=== PATIENT | female | born 1960 | race Caucasian/White ===

== ENCOUNTER 2020-10-04 11:38 | Inpatient (IN) | payer MEDICARE, MEDICAID ==
[~2020-10-04 11:38] MED LIST: Heparin 10,000 UNITS/ 10 ML VIAL ONE
[2020-10-04 12:44] LABS: ALT (SGPT) 10 U/L (8-55); AST (SGOT) 12 U/L (5-34); Albumin 3.4 g/dL (3.4-4.8); Alkaline Phosphatase 94 U/L (40-110); Anion Gap 12 mmol/L (10-20); BUN (Urea Nitrogen) 73 mg/dL (9.8-20.1); Bilirubin, Total 0.8 mg/dL (0.2-1.2); Calc. Creatinine Clearance 0 mL/min (70-130); Calcium 9.5 mg/dL (7.8-10.44); Carbon Dioxide 33 mmol/L (23-31); Chloride 97 mmol/L (98-107); Globulin 4.6 g/dL (2.4-3.5); Glucose 204 mg/dL (80-115); Potassium 4.2 mmol/L (3.5-5.1); Sodium 138 mmol/L (136-145)
[2020-10-04 12:52] LABS: Band 2 % (5-11); Eosinophils 4 % (0-10); Lymphocytes 17 % (21-51); MDiff Complete? YES; Mean Corpuscular HGB CONC 31.9 g/dL (32.0-36.0); Mean Corpuscular Hemoglobin 29.8 pg (27.0-31.0); Mean Corpuscular Volume 93.7 fL (78.0-98.0); Mean Platelet Volume 9.3 fL (7.4-10.4); Monocytes 8 % (0-10); Neutrophil 68 % (42-75); Platelet Count 115 thou/uL (130-400); Platelet Morphology Comment Appears Decreased; Polychromasia SLIGHT = 2-3 cells (100X) (0-2/hpf); RBC Distribution Width 15.1 % (11.5-14.5); Red Blood Cell (RBC) Count 4.04 mill/uL (4.20-5.40)
[2020-10-04] MEDS ORDERED: Acetaminophen/Codeine 30-300mg Tablet ONE (13:02)
[2020-10-04] MEDS ORDERED: Dextrose 5% in Water 1,000 ML IV PRN (14:12)
[2020-10-04] MEDS ORDERED: Bisacodyl 5 MG TAB PO PRN (14:12)
[2020-10-04] MEDS ORDERED: Acetaminophen 325 MG TAB PO PRN (14:12)
[2020-10-04] MEDS ORDERED: Ondansetron PF 4 MG/2 ML Vial IVP PRN (14:12)
[2020-10-04] MEDS ORDERED: Dextrose 50% Abboject 50 ML SYRINGE SLOW IVP PRN (14:12)
[2020-10-04 14:25] LABS: CKMB 1.9 ng/mL (0-6.6)
[2020-10-04] MEDS ORDERED: Heparin 5,000 UNITS/ML VIAL SC SCH (15:00)
[2020-10-04] MEDS ORDERED: CEFAZOLIN 2 GM in Premix Bag 1 BAG IVPB SCH ×2 (15:30→16:00)
[2020-10-04 16:10] LABS: HBSAB Concentration Less than 8.00 mIU/mL; Hep B Core Total Ab Non-Reactive (NonReactive); Hep B Core Total Index 0.12 S/CO (0-0.79); Hep B Surf AB Non-Reactive (NonReactive); Hep B Surf Ag Non-Reactive S/CO (NonReactive); Hep C IgG Ab Non-Reactive (NonReactive); Hep C Index 0.07 S/CO (0-0.79)
[2020-10-04 16:50] LABS: SARS-CoV-2 NAA Rapid Test Not Detected (NotDetected)
[2020-10-04] MEDS ORDERED: Lidocaine 1% w/Epinephrine 1:100K 20 ML VIAL ONE (17:16)
[2020-10-04] MEDS ORDERED: Sodium Chloride 0.9% 30 ML ONE (17:16)
[2020-10-04] MEDS ORDERED: Bupivacaine PF 0.5% 30 ML VIAL ONE (17:16)
[2020-10-04] MEDS ORDERED: Heparin 10,000 UNITS/ 10 ML VIAL ONE (17:16)
[2020-10-04] MEDS ORDERED: Propofol 500 MG/50 ML VIAL ONE (17:27)
[2020-10-04] MEDS ORDERED: Fentanyl 100 MCG/2 ML VIAL ONE (17:27)
[2020-10-04] MEDS ORDERED: Midazolam HCl 2 mg/2 ml Vial ONE (17:27)
[2020-10-04] MEDS ORDERED: Tuberculin PPD 0.1 ML VIAL I-DERMAL SCH ×2 (17:30→20:00)
[2020-10-04] MEDS ORDERED: PROPOFOL 0 ML ONE (17:50)
[2020-10-04] MEDS ORDERED: Sodium Chloride 0.9% 10 ML ONE (18:27)
[2020-10-05] MEDS: HYDROcodone/Acetaminophen 5/325 mg Tablet PO PRN ×3 (04:03→18:54)
[2020-10-05 04:32] LABS: #Eosinphils 0.3 thou/uL (0.0-0.7); #Lymphocytes 0.6 thou/uL (1.20-3.40); #Monocytes 0.6 thou/uL (0.11-0.59); %Basophils 0.5 % (0.0-1.0); %Eosinophils 5.3 % (0.0-10.0); %Lymphocytes 8.8 % (21.0-51.0); %Monocytes 9.1 % (0.0-10.0); %Neutrophils 76.2 % (42.0-75.0); Hemoglobin 10.6 g/dL (12.0-16.0); Mean Corpuscular HGB CONC 31.9 g/dL (32.0-36.0); Mean Corpuscular Hemoglobin 30.1 pg (27.0-31.0); Mean Corpuscular Volume 94.4 fL (78.0-98.0); Mean Platelet Volume 8.6 fL (7.4-10.4); Platelet Count 132 thou/uL (130-400); Red Blood Cell (RBC) Count 3.53 mill/uL (4.20-5.40); White Blood Cell (WBC) Count 6.5 thou/uL (4.8-10.8)
[2020-10-05 04:51] LABS: Anion Gap 10 mmol/L (10-20); BUN (Urea Nitrogen) 55 mg/dL (9.8-20.1); Calc. Creatinine Clearance 69 mL/min (70-130); Calcium 9.2 mg/dL (7.8-10.44); Carbon Dioxide 34 mmol/L (23-31); Chloride 100 mmol/L (98-107); Glucose 137 mg/dL (80-115); Potassium 4.1 mmol/L (3.5-5.1); Sodium 140 mmol/L (136-145)
[2020-10-05] MEDS ORDERED: Morphine 2 MG/ML VIAL SLOW IVP SCH ×2 (07:00→23:59)
[2020-10-05] MEDS ORDERED: Heparin 10,000 UNITS/ 10 ML VIAL ONE (09:42)
[2020-10-05] MEDS ORDERED: Gabapentin 300 MG CAP PO SCH (15:30)
[2020-10-05] MEDS: Gabapentin 300 MG CAP PO SCH (20:41)
[2020-10-05 23:26] LABS: Body Surface Area 2.54
[2020-10-05] MEDS ORDERED: traMADol HCl 50 MG TAB PO PRN (23:40)
[2020-10-06 00:03] LABS: Creatinine, Urine 53.9 mg/dL (47-110)
[2020-10-06] MEDS: HYDROcodone/Acetaminophen 7.5/325 mg Tablet PO PRN ×2 (00:57→17:53)
[2020-10-06] MEDS ORDERED: Heparin 10,000 UNITS/ 10 ML VIAL ONE ×2 (09:29→12:42)
[2020-10-06] MEDS: Gabapentin 300 MG CAP PO SCH ×3 (10:07→20:59)
[2020-10-06 10:21] LABS: #Eosinphils 0.2 thou/uL (0.0-0.7); #Lymphocytes 0.6 thou/uL (1.20-3.40); #Monocytes 0.7 thou/uL (0.11-0.59); #Neutrophils 5.8 thou/uL (1.40-6.50); %Basophils 0.3 % (0.0-1.0); %Eosinophils 3.4 % (0.0-10.0); %Lymphocytes 7.9 % (21.0-51.0); %Neutrophils 79.4 % (42.0-75.0); Hemoglobin 10.9 g/dL (12.0-16.0); Mean Corpuscular Hemoglobin 29.4 pg (27.0-31.0); Mean Corpuscular Volume 94.7 fL (78.0-98.0); Mean Platelet Volume 8.2 fL (7.4-10.4); Platelet Count 126 thou/uL (130-400); RBC Distribution Width 14.7 % (11.5-14.5); White Blood Cell (WBC) Count 7.3 thou/uL (4.8-10.8)
[2020-10-06 10:35] LABS: Anion Gap 14 mmol/L (10-20); BUN (Urea Nitrogen) 33 mg/dL (9.8-20.1); Calc. Creatinine Clearance 83 mL/min (70-130); Calcium 9.4 mg/dL (7.8-10.44); Carbon Dioxide 31 mmol/L (23-31); Chloride 101 mmol/L (98-107); Glucose 128 mg/dL (80-115); Iron 71 ug/dL (50-170); Iron 75 ug/dL (50-170); Iron Binding Capacity, Total 310 mcg/dL (265-497); Iron Binding Capacity, Total 311 mcg/dL (265-497); Potassium 4.2 mmol/L (3.5-5.1); Sodium 142 mmol/L (136-145)
[2020-10-06 11:01] LABS: Thyroid Stimulating Hormone 2.6686 uIU/mL (0.35-4.94)
[2020-10-06] MEDS ORDERED: Bupivacaine PF 0.5% 30 ML VIAL ONE (12:42)
[2020-10-06] MEDS ORDERED: Heparin 5,000 UNITS/ML VIAL ONE (12:42)
[2020-10-06] MEDS ORDERED: Lidocaine 1% w/Epinephrine 1:100K 20 ML VIAL ONE (12:42)
[2020-10-06] MEDS ORDERED: Protamine Sulfate 50 MG/5 ML VIAL ONE (12:42)
[2020-10-06] MEDS ORDERED: Fentanyl 100 MCG/2 ML VIAL ONE ×4 (12:52→16:42)
[2020-10-06] MEDS ORDERED: Phenylephrine 10 MG/ML VIAL ONE (12:52)
[2020-10-06] MEDS ORDERED: Ondansetron PF 4 MG/2 ML Vial ONE (13:05)
[2020-10-06] MEDS ORDERED: Glycopyrrolate 0.2 MG/ML 5 ML SYRINGE ONE (13:05)
[2020-10-06] MEDS ORDERED: Succinylcholine 200 MG/10 ml SYRINGE FS ONE (13:05)
[2020-10-06] MEDS ORDERED: Lidocaine 1% PF 5 ML VIAL ONE (13:05)
[2020-10-06] MEDS ORDERED: PROPOFOL 200 MG/20 ML VIAL ONE (13:05)
[2020-10-06] MEDS ORDERED: Dexamethasone 20 MG/5 ML VIAL ONE (13:05)
[2020-10-06 14:41] LABS: Ferritin 79.23 ng/mL (10-291)
[2020-10-06] MEDS ORDERED: READ PPD TEST SITE PO SCH (20:00)
[2020-10-07] MEDS: HYDROcodone/Acetaminophen 7.5/325 mg Tablet PO PRN ×3 (00:37→20:32)
[2020-10-07] MEDS: Gabapentin 300 MG CAP PO SCH ×3 (07:57→20:31)
[2020-10-07] MEDS ORDERED: CEFAZOLIN 2 GM in Premix Bag 1 BAG IVPB SCH (11:15)
[2020-10-07] MEDS ORDERED: Morphine 2 MG/ML VIAL ONE ×2 (12:23→14:10)
[2020-10-07] MEDS ORDERED: Bupivacaine PF 0.5% 30 ML VIAL ONE (14:36)
[2020-10-07] MEDS ORDERED: Lidocaine 1% w/Epinephrine 1:100K 30 ML VIAL ONE (14:36)
[2020-10-07] MEDS ORDERED: Fentanyl 100 MCG/2 ML VIAL ONE ×4 (14:38→16:49)
[2020-10-07] MEDS ORDERED: ePHEDrine Sulfate 50 MG/10 ML VIAL ONE (14:39)
[2020-10-07] MEDS ORDERED: Propofol 1,000 MG/100 ML VIAL IV ONE (14:39)
[2020-10-07] MEDS ORDERED: ePHEDrine 50 MG/ML VIAL ONE (14:55)
[2020-10-07] MEDS ORDERED: Succinylcholine 200 MG/10 ml SYRINGE FS ONE (14:55)
[2020-10-07] MEDS ORDERED: PROPOFOL 200 MG/20 ML VIAL ONE (14:55)
[2020-10-07] MEDS ORDERED: Non-Formulary Medication 1 EACH PO PRN (18:13)
[2020-10-07] MEDS ORDERED: Ondansetron HCl/PF 4 MG/2 ML Vial IVP PRN (18:15)
[2020-10-07] MEDS ORDERED: Promethazine HCl 25 MG/ML VIAL IM/IV PRN (18:15)
[2020-10-07] MEDS: Carvedilol 3.125 MG TAB PO SCH (20:30)
[2020-10-07] MEDS: Atorvastatin Calcium 40 MG TAB PO SCH (20:32)
[2020-10-08] MEDS: HYDROcodone/Acetaminophen 7.5/325 mg Tablet PO PRN ×4 (00:58→22:23)
[2020-10-08] MEDS: Gabapentin 300 MG CAP PO SCH ×3 (07:45→21:36)
[2020-10-08] MEDS: Carvedilol 3.125 MG TAB PO SCH ×2 (07:45→21:37)
[2020-10-08] MEDS ORDERED: Heparin 10,000 UNITS/ 10 ML VIAL ONE (08:18)
[2020-10-08 10:46] LABS: Hemoglobin 10.1 g/dL (12.0-16.0); Mean Corpuscular HGB CONC 32.4 g/dL (32.0-36.0); Mean Corpuscular Hemoglobin 30.5 pg (27.0-31.0); Mean Corpuscular Volume 93.9 fL (78.0-98.0); Mean Platelet Volume 8.4 fL (7.4-10.4); Platelet Count 112 thou/uL (130-400); RBC Distribution Width 14.9 % (11.5-14.5); White Blood Cell (WBC) Count 7.2 thou/uL (4.8-10.8)
[2020-10-08 11:14] LABS: Band 6 % (5-11); Elliptocytes SLIGHT = 2-5 cells (100X) (0-1/hpf); Eosinophils 2 % (0-10); Lymphocytes 3 % (21-51); MDiff Complete? YES; Monocytes 7 % (0-10); Neutrophil 81 % (42-75); Ovalocytes SLIGHT = 2-5 cells (100X) (0-1/hpf); Platelet Morphology Comment Appears Decreased; Polychromasia SLIGHT = 2-3 cells (100X) (0-2/hpf); Reactive Lymphocytes 1 % (0-10); Tear Drops SLIGHT = 2-5 cells (100X) (0-1/hpf)
[2020-10-08 11:21] LABS: Anion Gap 14 mmol/L (10-20); BUN (Urea Nitrogen) 51 mg/dL (9.8-20.1); Calc. Creatinine Clearance 56 mL/min (70-130); Calcium 9.3 mg/dL (7.8-10.44); Carbon Dioxide 28 mmol/L (23-31); Chloride 98 mmol/L (98-107); Glucose 155 mg/dL (80-115); Potassium 4.4 mmol/L (3.5-5.1); Sodium 136 mmol/L (136-145)
[2020-10-08] MEDS: Atorvastatin Calcium 40 MG TAB PO SCH (21:35)
[2020-10-08] MEDS: Melatonin 3 MG TAB PO PRN (21:37)
[2020-10-09] MEDS ORDERED: Heparin 10,000 UNITS/ 10 ML VIAL ONE (08:19)
[2020-10-09] MEDS: Gabapentin 300 MG CAP PO SCH ×4 (11:33→20:33)
[2020-10-09] MEDS: HYDROcodone/Acetaminophen 7.5/325 mg Tablet PO PRN ×3 (11:33→20:49)
[2020-10-09] MEDS: Carvedilol 3.125 MG TAB PO SCH ×2 (11:34→20:31)
[2020-10-09] MEDS: HumaLOG 300 UNITS/3 ML VIAL SC PRN (17:20)
[2020-10-09] MEDS: Atorvastatin Calcium 40 MG TAB PO SCH (20:31)
[2020-10-09] MEDS: Melatonin 3 MG TAB PO PRN (21:35)
[2020-10-10 05:05] LABS: Albumin 3.2 g/dL (3.4-4.8); Anion Gap 9 mmol/L (10-20); BUN (Urea Nitrogen) 28 mg/dL (9.8-20.1); BUN/Creatinine Ratio 16.37; Calc. Creatinine Clearance 85 mL/min (70-130); Calcium 9.2 mg/dL (7.8-10.44); Carbon Dioxide 32 mmol/L (23-31); Chloride 101 mmol/L (98-107); Glucose 204 mg/dL (80-115); Phosphorus 2.6 mg/dL (2.3-4.7); Sodium 138 mmol/L (136-145)
[2020-10-10] MEDS: Gabapentin 300 MG CAP PO SCH ×3 (09:13→21:00)
[2020-10-10] MEDS: Carvedilol 3.125 MG TAB PO SCH ×2 (09:14→21:00)
[2020-10-10] MEDS: HYDROcodone/Acetaminophen 7.5/325 mg Tablet PO PRN ×3 (09:14→21:01)
[2020-10-10] MEDS: HumaLOG 300 UNITS/3 ML VIAL SC PRN ×2 (12:14→17:17)
[2020-10-10] MEDS: hydrALAZINE 25 MG TAB PO PRN (14:03)
[2020-10-10] MEDS: Atorvastatin Calcium 40 MG TAB PO SCH (21:01)
[2020-10-11] MEDS ORDERED: Heparin 10,000 UNITS/ 10 ML VIAL ONE (08:21)
[2020-10-11] MEDS: hydrALAZINE 25 MG TAB PO PRN ×2 (12:19→16:22)
[2020-10-11] MEDS: HYDROcodone/Acetaminophen 7.5/325 mg Tablet PO PRN ×3 (12:19→20:57)
[2020-10-11] MEDS: Gabapentin 300 MG CAP PO SCH ×3 (12:19→21:00)
[2020-10-11] MEDS: Carvedilol 3.125 MG TAB PO SCH ×2 (12:20→20:59)
[2020-10-11] MEDS: HumaLOG 300 UNITS/3 ML VIAL SC PRN (17:25)
[2020-10-11 18:10] LABS: Anion Gap 9 mmol/L (10-20); BUN (Urea Nitrogen) 21 mg/dL (9.8-20.1); Calc. Creatinine Clearance 98 mL/min (70-130); Calcium 9.1 mg/dL (7.8-10.44); Carbon Dioxide 32 mmol/L (23-31); Chloride 100 mmol/L (98-107); Glucose 173 mg/dL (80-115); Sodium 137 mmol/L (136-145)
[2020-10-11] MEDS: Atorvastatin Calcium 40 MG TAB PO SCH (20:59)
[2020-10-12] MEDS: HYDROcodone/Acetaminophen 7.5/325 mg Tablet PO PRN ×3 (05:30→14:05)
[2020-10-12] MEDS: Gabapentin 300 MG CAP PO SCH ×3 (08:54→21:15)
[2020-10-12] MEDS: Carvedilol 3.125 MG TAB PO SCH ×2 (08:55→21:15)
[2020-10-12 11:48] VITALS: BMI 48.2
[2020-10-12] MEDS: HumaLOG 300 UNITS/3 ML VIAL SC PRN ×2 (12:10→17:15)
[2020-10-12] MEDS: Atorvastatin Calcium 40 MG TAB PO SCH (21:14)
[2020-10-12] MEDS: Lantus 1000 UNITS/10 ML VIAL SC SCH (21:39)
[2020-10-13 05:38] LABS: #Basophils 0.1 thou/uL (0.0-0.2); #Eosinphils 0.5 thou/uL (0.0-0.7); #Lymphocytes 0.9 thou/uL (1.20-3.40); #Monocytes 0.8 thou/uL (0.11-0.59); #Neutrophils 6.2 thou/uL (1.40-6.50); %Basophils 0.6 % (0.0-1.0); %Eosinophils 5.8 % (0.0-10.0); %Lymphocytes 10.7 % (21.0-51.0); %Monocytes 9.1 % (0.0-10.0); %Neutrophils 73.8 % (42.0-75.0); Hemoglobin 10.7 g/dL (12.0-16.0); Mean Corpuscular HGB CONC 31.4 g/dL (32.0-36.0); Mean Corpuscular Hemoglobin 29.9 pg (27.0-31.0); Mean Corpuscular Volume 95.1 fL (78.0-98.0); Mean Platelet Volume 8.3 fL (7.4-10.4); Platelet Count 143 thou/uL (130-400); RBC Distribution Width 15.7 % (11.5-14.5); Red Blood Cell (RBC) Count 3.57 mill/uL (4.20-5.40); White Blood Cell (WBC) Count 8.5 thou/uL (4.8-10.8)
[2020-10-13] MEDS: HYDROcodone/Acetaminophen 7.5/325 mg Tablet PO PRN ×3 (05:56→21:03)
[2020-10-13 06:03] LABS: Anion Gap 11 mmol/L (10-20); BUN (Urea Nitrogen) 37 mg/dL (9.8-20.1); Calc. Creatinine Clearance 58 mL/min (70-130); Calcium 9.3 mg/dL (7.8-10.44); Carbon Dioxide 29 mmol/L (23-31); Chloride 100 mmol/L (98-107); Glucose 207 mg/dL (80-115); Phosphorus 3.1 mg/dL (2.3-4.7); Sodium 136 mmol/L (136-145)
[2020-10-13] MEDS ORDERED: Heparin 10,000 UNITS/ 10 ML VIAL ONE (08:53)
[2020-10-13] MEDS: Gabapentin 300 MG CAP PO SCH ×3 (09:35→21:04)
[2020-10-13] MEDS: Carvedilol 3.125 MG TAB PO SCH ×2 (12:30→21:04)
[2020-10-13] MEDS: hydrALAZINE 25 MG TAB PO PRN (12:30)
[2020-10-13 16:44] LABS: SARS-CoV-2 PCR by NAA Not Detected (NotDetected)
[2020-10-13] MEDS: HumaLOG 300 UNITS/3 ML VIAL SC PRN ×2 (17:07→21:05)
[2020-10-13] MEDS: Atorvastatin Calcium 40 MG TAB PO SCH (21:04)
[2020-10-13] MEDS: Lantus 1000 UNITS/10 ML VIAL SC SCH (21:05)
[2020-10-14] MEDS: HYDROcodone/Acetaminophen 7.5/325 mg Tablet PO PRN ×3 (05:11→21:09)
[2020-10-14] MEDS: hydrALAZINE 25 MG TAB PO PRN (08:58)
[2020-10-14] MEDS: Gabapentin 300 MG CAP PO SCH ×3 (08:58→21:05)
[2020-10-14] MEDS: Carvedilol 3.125 MG TAB PO SCH ×2 (08:59→21:05)
[2020-10-14] MEDS: HumaLOG 300 UNITS/3 ML VIAL SC PRN ×2 (12:17→16:40)
[2020-10-14] MEDS ORDERED: Lantus 1000 UNITS/10 ML VIAL SC SCH (21:00)
[2020-10-14] MEDS: Atorvastatin Calcium 40 MG TAB PO SCH (21:06)
[2020-10-15] MEDS: HumaLOG 300 UNITS/3 ML VIAL SC PRN ×3 (05:30→16:39)
[2020-10-15 07:53] LABS: #Eosinphils 0.4 thou/uL (0.0-0.7); #Lymphocytes 0.8 thou/uL (1.20-3.40); #Monocytes 0.7 thou/uL (0.11-0.59); #Neutrophils 5.4 thou/uL (1.40-6.50); %Basophils 0.4 % (0.0-1.0); %Eosinophils 5.4 % (0.0-10.0); %Lymphocytes 11.4 % (21.0-51.0); %Monocytes 9.4 % (0.0-10.0); %Neutrophils 73.4 % (42.0-75.0); Hemoglobin 10.7 g/dL (12.0-16.0); Mean Corpuscular HGB CONC 30.7 g/dL (32.0-36.0); Mean Corpuscular Hemoglobin 29.3 pg (27.0-31.0); Mean Corpuscular Volume 95.4 fL (78.0-98.0); Mean Platelet Volume 8.2 fL (7.4-10.4); Platelet Count 168 thou/uL (130-400); RBC Distribution Width 15.5 % (11.5-14.5); Red Blood Cell (RBC) Count 3.66 mill/uL (4.20-5.40); White Blood Cell (WBC) Count 7.3 thou/uL (4.8-10.8)
[2020-10-15 08:15] LABS: Anion Gap 11 mmol/L (10-20); BUN (Urea Nitrogen) 35 mg/dL (9.8-20.1); Calc. Creatinine Clearance 51 mL/min (70-130); Calcium 9.4 mg/dL (7.8-10.44); Carbon Dioxide 31 mmol/L (23-31); Chloride 101 mmol/L (98-107); Glucose 231 mg/dL (80-115); Phosphorus 3.6 mg/dL (2.3-4.7); Potassium 4.1 mmol/L (3.5-5.1); Sodium 139 mmol/L (136-145)
[2020-10-15] MEDS: Carvedilol 3.125 MG TAB PO SCH ×2 (09:22→13:01)
[2020-10-15] MEDS: Gabapentin 300 MG CAP PO SCH ×2 (09:22→15:30)
[2020-10-15] MEDS ORDERED: Heparin 10,000 UNITS/ 10 ML VIAL ONE (09:53)
[2020-10-15] MEDS: HYDROcodone/Acetaminophen 7.5/325 mg Tablet PO PRN ×2 (13:01→17:13)
[2020-10-15 17:16] VITALS: BP 115/74; TEMP 98
== END 2020-10-15 18:07 | DRG 264 ==
LOC: ERS 11:38 → ERHOLD 13:22 → T4-A 15:09
PROVIDERS: ADMIT Internal Medicine; ATTEND Internal Medicine
PROC: 0JH63XZ Insertion of Tunneled Vascular Access Device into Chest Subcutaneous Tissue and Fascia, Percutaneous Approach (ICD-10-PCS; principal; 2020-10-04)
PROC: 02HV33Z Insertion of Infusion Device into Superior Vena Cava, Percutaneous Approach (ICD-10-PCS; 2020-10-04)
PROC: B5181ZA Fluoroscopy of Superior Vena Cava using Low Osmolar Contrast, Guidance (ICD-10-PCS; 2020-10-04)
PROC: B548ZZA Ultrasonography of Superior Vena Cava, Guidance (ICD-10-PCS; 2020-10-04)
PROC: 031C09F Bypass Left Radial Artery to Lower Arm Vein with Autologous Venous Tissue, Open Approach (ICD-10-PCS; 2020-10-07)
PROC: 0JCH0ZZ Extirpation of Matter from Left Lower Arm Subcutaneous Tissue and Fascia, Open Approach (ICD-10-PCS; 2020-10-07)
DX: I13.2 Hypertensive heart and chronic kidney disease with heart failure and with stage 5 chronic kidney disease, or end stage renal disease (principal); N18.6 End stage renal disease; J81.0 Acute pulmonary edema; J96.20 Acute and chronic respiratory failure, unspecified whether with hypoxia or hypercapnia; L97.909 Non-pressure chronic ulcer of unspecified part of unspecified lower leg with unspecified severity; E87.3 Alkalosis; L76.32 Postprocedural hematoma of skin and subcutaneous tissue following other procedure; Z68.42 Body mass index [BMI] 45.0-49.9, adult; Z20.822 Contact with and (suspected) exposure to COVID-19; I50.9 Heart failure, unspecified; G47.33 Obstructive sleep apnea (adult) (pediatric); E11.22 Type 2 diabetes mellitus with diabetic chronic kidney disease; E11.622 Type 2 diabetes mellitus with other skin ulcer; L40.9 Psoriasis, unspecified; K21.9 Gastro-esophageal reflux disease without esophagitis; I25.10 Atherosclerotic heart disease of native coronary artery without angina pectoris; E87.70 Fluid overload, unspecified; F17.210 Nicotine dependence, cigarettes, uncomplicated; D63.1 Anemia in chronic kidney disease; E78.5 Hyperlipidemia, unspecified; F41.9 Anxiety disorder, unspecified; F31.9 Bipolar disorder, unspecified; G89.29 Other chronic pain; E66.01 Morbid (severe) obesity due to excess calories; J44.9 Chronic obstructive pulmonary disease, unspecified; Y83.9 Surgical procedure, unspecified as the cause of abnormal reaction of the patient, or of later complication, without mention of misadventure at the time of the procedure; E11.65 Type 2 diabetes mellitus with hyperglycemia; Z95.5 Presence of coronary angioplasty implant and graft; Z83.3 Family history of diabetes mellitus; Z79.82 Long term (current) use of aspirin; Z79.4 Long term (current) use of insulin; Z79.899 Other long term (current) drug therapy; Z95.1 Presence of aortocoronary bypass graft; Z86.711 Personal history of pulmonary embolism; Z74.01 Bed confinement status
CPT/HCPCS: 36415; 36416; 71045; 80048; 80053; 80069; 82553; 82565; 82575; 82607; 82728; 82746; 83540; 83550; 83735; 83880; 84100; 84443; 84484; 85007; 85025; 85027; 86580; 86704; 86706; 86803; 87340; 90935; 93970; 99284; C1751; C1752; G0257; J1100; J1642; J1644; J1815; J2250; J2270; J2370; J2405; J2704; J2720; J3010; J3490; S0020; U0002; U0003; U0005

== ENCOUNTER 2020-10-22 11:03 | Emergency (ER) | payer MEDICARE, MEDICAID ==
[2020-10-22] MEDS ORDERED: Heparin 10,000 UNITS/ 10 ML VIAL ONE (14:45)
[2020-10-22 17:47] LABS: Hemoglobin 11.5 g/dL (12.0-16.0); Mean Corpuscular HGB CONC 31.1 g/dL (32.0-36.0); Mean Corpuscular Hemoglobin 29.6 pg (27.0-31.0); Mean Corpuscular Volume 95.1 fL (78.0-98.0); Mean Platelet Volume 7.7 fL (7.4-10.4); Platelet Count 219 thou/uL (130-400); RBC Distribution Width 16.2 % (11.5-14.5); White Blood Cell (WBC) Count 8.7 thou/uL (4.8-10.8)
[2020-10-22 17:48] LABS: #Basophils 0.1 thou/uL (0.0-0.2); #Eosinphils 0.2 thou/uL (0.0-0.7); #Lymphocytes 0.8 thou/uL (1.20-3.40); #Monocytes 0.9 thou/uL (0.11-0.59); #Neutrophils 6.7 thou/uL (1.40-6.50); %Eosinophils 2.2 % (0.0-10.0); %Lymphocytes 9.2 % (21.0-51.0); %Monocytes 10.6 % (0.0-10.0); %Neutrophils 77.1 % (42.0-75.0)
[2020-10-22 20:51] LABS: Anion Gap 18 mmol/L (10-20); BUN (Urea Nitrogen) 43 mg/dL (9.8-20.1); Calc. Creatinine Clearance 0 mL/min (70-130); Carbon Dioxide 24 mmol/L (23-31); Chloride 98 mmol/L (98-107); Potassium 4.5 mmol/L (3.5-5.1); Sodium 135 mmol/L (136-145)
[2020-10-22 20:52] LABS: ALT (SGPT) 7 U/L (8-55); AST (SGOT) 14 U/L (5-34); Albumin 3.7 g/dL (3.4-4.8); Alkaline Phosphatase 131 U/L (40-110); Bilirubin, Total 0.8 mg/dL (0.2-1.2); Calcium 8.8 mg/dL (7.8-10.44); Globulin 4.1 g/dL (2.4-3.5); Glucose 185 mg/dL (80-115); Protein, Total 7.8 g/dL (5.8-8.1)
[2020-10-22 20:56] LABS: Anion Gap 14 mmol/L (10-20); BUN (Urea Nitrogen) 44 mg/dL (9.8-20.1); Calc. Creatinine Clearance 0 mL/min (70-130); Calcium 9.1 mg/dL (7.8-10.44); Carbon Dioxide 27 mmol/L (23-31); Chloride 98 mmol/L (98-107); Glucose 157 mg/dL (80-115); Potassium 4.1 mmol/L (3.5-5.1); Sodium 135 mmol/L (136-145)
[2020-10-22 20:58] LABS: Hemoglobin 10.8 g/dL (12.0-16.0); Mean Corpuscular HGB CONC 31.1 g/dL (32.0-36.0); Mean Corpuscular Hemoglobin 29.5 pg (27.0-31.0); Mean Corpuscular Volume 94.9 fL (78.0-98.0); Mean Platelet Volume 7.3 fL (7.4-10.4); Platelet Count 242 thou/uL (130-400); RBC Distribution Width 16.2 % (11.5-14.5); Red Blood Cell (RBC) Count 3.67 mill/uL (4.20-5.40)
[2020-10-22 20:59] LABS: #Eosinphils 0.3 thou/uL (0.0-0.7); #Lymphocytes 0.9 thou/uL (1.20-3.40); #Monocytes 0.9 thou/uL (0.11-0.59); %Basophils 0.3 % (0.0-1.0); %Eosinophils 2.8 % (0.0-10.0); %Lymphocytes 9.8 % (21.0-51.0); %Monocytes 9.6 % (0.0-10.0); %Neutrophils 77.5 % (42.0-75.0)
== END 2020-10-23 02:21 ==
LOC: ERS 11:03
DX: L76.32 Postprocedural hematoma of skin and subcutaneous tissue following other procedure (principal); I12.0 Hypertensive chronic kidney disease with stage 5 chronic kidney disease or end stage renal disease; E11.22 Type 2 diabetes mellitus with diabetic chronic kidney disease; N18.6 End stage renal disease; G47.33 Obstructive sleep apnea (adult) (pediatric); K21.9 Gastro-esophageal reflux disease without esophagitis; I25.10 Atherosclerotic heart disease of native coronary artery without angina pectoris; E78.5 Hyperlipidemia, unspecified; Z99.2 Dependence on renal dialysis
CPT/HCPCS: 80053; 85025; 85652; 86140; 90935; 99283; G0257; J1644

== ENCOUNTER 2021-11-17 20:27 | Emergency (ER) | payer MEDICARE, MEDICAID ==
[2021-11-17 22:42] LABS: #Basophils 0.1 thou/uL (0.0-0.2); #Eosinphils 0.3 thou/uL (0.0-0.7); #Lymphocytes 1.6 thou/uL (1.20-3.40); #Monocytes 0.8 thou/uL (0.11-0.59); #Neutrophils 6.2 thou/uL (1.40-6.50); %Basophils 0.8 % (0.0-1.0); %Lymphocytes 17.9 % (21.0-51.0); %Monocytes 8.5 % (0.0-10.0); %Neutrophils 69.7 % (42.0-75.0); Hemoglobin 12.1 g/dL (12.0-16.0); Mean Corpuscular HGB CONC 32.4 g/dL (32.0-36.0); Mean Corpuscular Hemoglobin 33.8 pg (27.0-31.0); Platelet Count 210 thou/uL (130-400); RBC Distribution Width 13.4 % (11.5-14.5); Red Blood Cell (RBC) Count 3.58 mill/uL (4.20-5.40); White Blood Cell (WBC) Count 8.9 thou/uL (4.8-10.8)
[2021-11-17 22:58] LABS: ALT (SGPT) 10 U/L (8-55); AST (SGOT) 12 U/L (5-34); Albumin 3.6 g/dL (3.4-4.8); Alkaline Phosphatase 163 U/L (40-110); Anion Gap 16 mmol/L (10-20); BUN (Urea Nitrogen) 67 mg/dL (9.8-20.1); Bilirubin, Total 0.4 mg/dL (0.2-1.2); Calc. Creatinine Clearance 0 mL/min (70-130); Calcium 9.3 mg/dL (7.8-10.44); Carbon Dioxide 25 mmol/L (23-31); Chloride 98 mmol/L (98-107); Estimated GFR 7; Globulin 4.8 g/dL (2.4-3.5); Glucose 218 mg/dL (80-115); Potassium 5.4 mmol/L (3.5-5.1); Protein, Total 8.4 g/dL (5.8-8.1); Sodium 134 mmol/L (136-145)
[2021-11-18] MEDS ORDERED: HYDROcodone/Acetaminophen 10/325 mg Tablet ONE (00:04)
== END 2021-11-18 00:34 | disposition home or self-care (01) ==
LOC: ERS 20:27
DX: Z48.817 Encounter for surgical aftercare following surgery on the skin and subcutaneous tissue (principal); E11.9 Type 2 diabetes mellitus without complications; K21.9 Gastro-esophageal reflux disease without esophagitis; I13.0 Hypertensive heart and chronic kidney disease with heart failure and stage 1 through stage 4 chronic kidney disease, or unspecified chronic kidney disease; E11.22 Type 2 diabetes mellitus with diabetic chronic kidney disease; N18.4 Chronic kidney disease, stage 4 (severe); I50.9 Heart failure, unspecified; Z99.2 Dependence on renal dialysis
CPT/HCPCS: 36415; 80053; 85025; 87070; 87077; 87186; 87205; 99283

== ENCOUNTER 2022-11-08 12:04 | Emergency (ER) | payer MEDICARE, OTHER, MEDICAID ==
[2022-11-08 14:30] LABS: #Basophils 0.1 thou/uL (0.0-0.2); #Eosinphils 0.1 thou/uL (0.0-0.7); #Monocytes 0.6 thou/uL (0.11-0.59); #Neutrophils 7.7 thou/uL (1.40-6.50); %Basophils 0.5 % (0.0-1.0); %Eosinophils 1.2 % (0.0-10.0); %Lymphocytes 8.5 % (21.0-51.0); %Monocytes 6.8 % (0.0-10.0); %Neutrophils 82.6 % (42.0-75.0); Hemoglobin 11.4 g/dL (12.0-16.0); Mean Corpuscular HGB CONC 31.7 g/dL (32.0-36.0); Mean Corpuscular Volume 101.1 fl (78.0-98.0); Mean Platelet Volume 9.2 fL (7.4-10.4); Platelet Count 269 10x3/uL (130-400); Red Blood Cell (RBC) Count 3.56 mill/uL (4.20-5.40); White Blood Cell (WBC) Count 9.3 10x3/uL (4.8-10.8)
[2022-11-08 14:53] LABS: ALT (SGPT) 8 U/L (8-55); AST (SGOT) 9 U/L (5-34); Albumin 3.8 g/dL (3.4-4.8); Alkaline Phosphatase 100 U/L (40-110); Anion Gap 24 mmol/L (10-20); BUN (Urea Nitrogen) 82 mg/dL (9.8-20.1); Bilirubin, Total 0.5 mg/dL (0.2-1.2); Calc. Creatinine Clearance 0 mL/min (70-130); Calcium 10.5 mg/dL (7.8-10.44); Carbon Dioxide 25 mmol/L (23-31); Chloride 94 mmol/L (98-107); Estimated GFR 4; Globulin 5.1 g/dL (2.4-3.5); Glucose 136 mg/dL (80-115); Potassium 5.7 mmol/L (3.5-5.1); Protein, Total 8.9 g/dL (5.8-8.1); Sodium 137 mmol/L (136-145)
[2022-11-08] MEDS ORDERED: Acetaminophen 500 MG TAB ONE (15:46)
[2022-11-08] MEDS ORDERED: Morphine 4 MG/ML VIAL ONE (16:07)
[2022-11-08] MEDS ORDERED: Morphine 2 MG/ML VIAL ONE (16:07)
[2022-11-08] MEDS ORDERED: fentaNYL 50 mcg/mL 1 mL Vial ONE ×2 (16:18→20:07)
[2022-11-08 18:39] LABS: HBSAg Index 0.23 S/CO (0-0.99); Hep B Core Total Ab Non-Reactive (NonReactive); Hep B Core Total Index 0.12 S/CO (0-0.79); Hep B Surf Ag Non-Reactive S/CO (NonReactive)
[2022-11-08 18:40] LABS: Hep C IgG Ab Non-Reactive S/CO (NonReactive); Hep C Index 0.14 S/CO (0-0.79)
[2022-11-08 18:44] LABS: HBSAB Concentration 27.67 mIU/mL; Hep B Surf AB Reactive (NonReactive)
== END 2022-11-08 23:45 ==
LOC: ERS 12:04
DX: I13.2 Hypertensive heart and chronic kidney disease with heart failure and with stage 5 chronic kidney disease, or end stage renal disease (principal); I50.9 Heart failure, unspecified; N18.6 End stage renal disease; E66.01 Morbid (severe) obesity due to excess calories; E87.5 Hyperkalemia; K21.9 Gastro-esophageal reflux disease without esophagitis; F17.210 Nicotine dependence, cigarettes, uncomplicated; E78.5 Hyperlipidemia, unspecified; Z99.2 Dependence on renal dialysis; Z79.82 Long term (current) use of aspirin; Z79.899 Other long term (current) drug therapy
CPT/HCPCS: 74176; 80053; 85025; 86704; J3010; 36415; 90935; 96372; 96374; G0257; J2270; J2272